=== PATIENT | female | born 1960 | race Caucasian/White ===

== ENCOUNTER → 2016-03-21 | Outpatient (CLI) | payer BC, OTHER ==
[~2016-03-21] MED LIST: ACTONEL 35 MG35 M1 PO; ASPIRIN325 PO; CENTRUM SILVER1 EAC1 PO; DOXYCYCLINE 10100 MG PO; LOSARTAN-HCTZ1 EAC3 PO; NORVASC10 MG PO; PLAVIX 75 MG TA75 M1 PO; PROLIA60 MG/1 ML SQ; VITAMIN D2000 UNIT PO; VITAMIN D400 UNI1 PO
[2016-03-21 08:51] LABS: CREATININE 0.7 mg/dL (0.6-1.3)
== END ==
LOC: CAT 08:10 → MRI 15:16 → CAT 15:22
PROVIDERS: Radiology Diagnostic Radiology
DX: I74.5 Embolism and thrombosis of iliac artery (principal); I73.9 Peripheral vascular disease, unspecified; K56.69 Other intestinal obstruction

== ENCOUNTER → 2016-09-11 | Outpatient (CLI) | payer BC, OTHER | LOC: ULTRA 12:49 | DX: I70.209 Unspecified atherosclerosis of native arteries of extremities, unspecified extremity (principal) ==

== ENCOUNTER → 2016-09-18 | Outpatient (CLI) | payer BC, OTHER | LOC: CAT 07:38 | DX: I70.1 Atherosclerosis of renal artery (principal); I35.0 Nonrheumatic aortic (valve) stenosis; I70.203 Unspecified atherosclerosis of native arteries of extremities, bilateral legs; I10 Essential (primary) hypertension ==

== ENCOUNTER 2016-10-15 07:32 | Outpatient (CLI) | payer BC, OTHER ==
[~2016-10-15] VITALS: Ht 154.9 cm; Wt 39.5 kg
--- NOTE | ~2016-10-15 | EKG ---
[address] [place] [address] ELECTROCARDIOGRAM REPORT Name: JEFFERY AGUIAR Room #: DEP JANICE Montiel#: [id number] Admission: 10/15/16 Attend Phys: Tanmay Fitzgerald MD Discharge: 10/15/16 Date of : 56 Report #: [id number] THIS REPORT FOR: //name// [facility] Test Date: 2016-10-15 Test Time: 13:13:33 Pat Name: JEFFERY AGUIAR Department: Room: Gender: F Admitting Officer: Mounika : 1960 Requested By: Lester Cast Order Number: [id number] MD: Ranjit Rousseau Measurements Intervals [place] Rate: 108 P: 72 ME: 123 QRS: 62 QRSD: 87 T: 255 QT: 382 QTc: 512 Interpretive Statements Sinus tachycardia Diffuse ST and T wave abnormality Prolonged QT interval No previous ECG available for comparison Electronically Signed On 10-16-2016 8:59:27 CDT by Ranjit Rousseau [email or web address] <ELECTRONICALLY SIGNED> By: Ranjit Rousseau MD, [facility] 10/16/16 [id number] Ranjit Rousseau MD, FACC /EPI
[2016-10-15 07:56] VITALS: BP 163/84
[2016-10-15 08:23] LABS: HEMATOCRIT 34.2 % (37.0-47.0); HEMOGLOBIN 11.8 gm/dL (12.0-15.0); MCH 37.9 pg (26.0-34.0); MCHC 34.4 g/dL (28.0-37.0); MCV 109.9 fL (80.0-100.0); RBC 3.11 mil/uL (4.20-5.00); RDW 14.8 % (10.5-14.5); WBC 5.4 thou/uL (4.0-11.0)
[2016-10-15 08:32] LABS: CALCIUM 8.9 mg/dL (8.5-10.1); CREATININE 0.5 mg/dL (0.6-1.0); POTASSIUM 3.3 mmol/L (3.5-5.1)
[2016-10-15 08:37] LABS: PROTIME 10.7 Seconds (9.3-11.4)
[2016-10-15 19:53] VITALS: BP 196/92
[2016-10-15 21:27] VITALS: BP 196/92
== END 2016-10-15 20:40 | disposition home or self-care (01) ==
LOC: SPEC 07:32 → 2N 16:40 → SPEC 20:40
PROVIDERS: Radiology Diagnostic Radiology
DX: I74.4 Embolism and thrombosis of arteries of extremities, unspecified (principal); I50.9 Heart failure, unspecified; M81.0 Age-related osteoporosis without current pathological fracture; Z98.890 Other specified postprocedural states; Z87.891 Personal history of nicotine dependence; Z79.82 Long term (current) use of aspirin; Z79.899 Other long term (current) drug therapy
CPT/HCPCS: 10081